=== PATIENT | female | born 1990 | race Asian ===

== ENCOUNTER 2016-11-01 13:37 | Emergency (ER) | payer OTHER ==
[~2016-11-01] VITALS: Ht 154.9 cm; Wt 67.1 kg
[2016-11-01] MEDS ORDERED: PRENTAB55 PO (13:49)
--- NOTE | 2016-11-01 15:47 | REP ---
Obstetric sonography: History: Abdominal cramping. Findings: Limited obstetric sonography demonstrates a viable single intrauterine gestation in a cephalic lie. heart rate is recorded at 168 beats per minute. A fundal left-sided placenta is seen without evidence of previa. Amniotic fluid is subjectively normal. EMMA is normal at 9.6 cm. The umbilical cord is seen surrounding the neck at this juncture. Closed cervical length viewed transabdominally is 4.1 cm. Signed by Kris Uriarte MD 11/01/2016 05:02 P
[2016-11-01 15:51] VITALS: BP 126/62
--- NOTE | 2016-11-03 21:38 | ED PDOC ---
Post-Departure Follow-Up ft jayson ob faxed formal report of ob us for fu Teja Bowles MD Nov 03, 2016 21:38
== END 2016-11-01 15:52 | disposition home or self-care (01) ==
LOC: M ED 14:10
DX: O99.89 Other specified diseases and conditions complicating pregnancy, childbirth and the puerperium (principal); R10.2 Pelvic and perineal pain; N89.8 Other specified noninflammatory disorders of vagina; Z3A.25 25 weeks gestation of pregnancy; Z87.891 Personal history of nicotine dependence

== ENCOUNTER 2017-01-26 17:02 | Outpatient (CLI) | payer OTHER ==
[~2017-01-26] VITALS: Ht 154.9 cm; Wt 0.7 kg
[~2017-01-26 17:02] MED LIST: PRENTAB55 PO
[2017-01-26 17:25] VITALS: BP 113/75
[2017-01-26] MEDS ORDERED: ACET50TA PO (18:04)
--- NOTE | 2017-01-26 21:56 | HPE ---
DATE OF ADMISSION: 01/26/2017 This lady is a 26-year-old 1, para 0, LMP 05/09/2016, EDC 02/13/2017 at 37 and 3 weeks of gestation with a history of pelvic pressure with movement. Risk factors is she has thalassemia and she has abnormal Pap smear. LABORATORY DATA: O+, HIV negative, hepatitis negative, RPR negative, rubella immune. Varicella immune. Pap abnormal LSIL, cannot rule out HSIL. Urine negative. Gonorrhea and chlamydia negative. 1-hour glucose is 93. On examination she does not appear in acute distress. Symphysis fundus height is 37, vertex presenting. Category one strip. Uterus is nontender. Bowel sounds four quadrants. Cervix is closed, posterior high, not dilated. No loss of fluid or discharge. Blood pressure is 113/75, pulse 100, temperature is 98.4, respirations are 18. Urine is 1.005, pH 7, trace of protein. Category one strip. The rest of the examination is unremarkable. She is normocephalic, atraumatic. Neck full range of motion. Pupils equal and reactive to light. Chest is clear bilaterally to bases. No wheezes or rhonchi. Distal pulses symmetric. No evidence of DVT, PE or superficial phlebitis. Back: No CVA tenderness. As mentioned the uterus is nontender. Four quadrant bowel sounds and appropriate symphysis fundus height. No rashes, lesions or pruritus. No arthralgia, myalgia. No complaints of cough, wheezes, shortness of breath or dyspnea on exertion. No chest pain. Not bleeding. Neurologically complete. No incontinency urgency, or frequency, nausea, vomiting or diarrhea or constipation. No diabetic issues. Gynecologic history is that her Pap smear is abnormal. Surgical history unremarkable. Family history noncontributory. She does not smoke or drink or abuse drugs and she is . There is no domestic violence. In summary, we have a 37 week with basically positional change causing pelvic pressure and pain. Precautions were given and the patient was discharged after an hour of evaluation, not delivered, and has a followup appointment on Friday.
== END 2017-01-26 18:10 | disposition home or self-care (01) ==
LOC: M LDO 17:02
PROVIDERS: ATTEND Obstetrics & Gynecology
DX: O26.893 Other specified pregnancy related conditions, third trimester (principal); Z3A.37 37 weeks gestation of pregnancy; R10.9 Unspecified abdominal pain; N89.9 Noninflammatory disorder of vagina, unspecified; D56.9 Thalassemia, unspecified; R87.612 Low grade squamous intraepithelial lesion on cytologic smear of cervix (LGSIL); O99.013 Anemia complicating pregnancy, third trimester

== ENCOUNTER 2017-02-14 01:50 | Outpatient (CLI) | payer OTHER ==
[~2017-02-14] VITALS: Ht 154.9 cm; Wt 69.0 kg
[~2017-02-14 01:50] MED LIST changes: +ACET50TA PO
[2017-02-14 02:04] VITALS: BP 125/88
[2017-02-14 02:16] VITALS: BP 135/86
[2017-02-14] MEDS ORDERED: LR 1,000 ML IV ONE (02:45)
[2017-02-14] MEDS ORDERED: ACETAMINOPHEN 500 MG TAB PO ONE (02:45)
[2017-02-14 03:08] LABS: MEAN CORPUSCULAR HEMOGLOBIN 28.1 pg (27.0-33.0); MEAN CORPUSCULAR HGB CONC 33.7 g/dl (32.0-36.5); MEAN CORPUSCULAR VOLUME 83.4 fl (80.0-96.0); WHITE BLOOD COUNT 13.2 K/mm3 (4.0-10.0)
[2017-02-14 03:18] VITALS: BP 118/70
[2017-02-14 03:38] LABS: ALBUMIN 2.8 GM/DL (3.2-5.2); ALBUMIN/GLOBULIN RATIO 0.78 (1.00-1.93); ALKALINE PHOSPHATASE 214 U/L (45-117); ALT/SGPT 21 U/L (12-78); ANION GAP 10 MEQ/L (8-16); AST/SGOT 22 U/L (15-37); BILIRUBIN,TOTAL 0.3 MG/DL (0.2-1.0); BLOOD UREA NITROGEN 8 MG/DL (7-18); CALCIUM LEVEL 9.6 MG/DL (8.5-10.1); CARBON DIOXIDE LEVEL 22 MEQ/L (21-32); CHLORIDE LEVEL 106 MEQ/L (98-107); GLOMERULAR FILTRATION RATE > 60.0 (>60); GLUCOSE, FASTING 107 MG/DL (70-105); POTASSIUM SERUM 4.1 MEQ/L (3.5-5.1); SODIUM LEVEL 138 MEQ/L (136-145); TOTAL PROTEIN 6.4 GM/DL (6.4-8.2); URIC ACID 3.5 MG/DL (2.6-6.0)
--- NOTE | 2017-02-15 09:38 | HPE ---
DATE OF ADMISSION: 02/14/2017 This a 26-year-old, 1, para 0, with a history of a headache, neck pain and swollen lymph nodes in her neck. Her risk factors is she has a family history of thalassemia and she had ASCUS, rule out HSIL on her Pap smear. Her labs are O+, HIV negative, hepatitis negative, VDRL negative, rubella immune. Varicella immune. Pap as mentioned ASCUS, rule out HSIL. Urine was negative. Gonorrhea and chlamydia negative. 1-hour glucose 93. GBS negative. On examination, she does not appear in distress. Symphysis fundus height is 40, vertex presenting. Category one strip, no decelerations, 15 x 15 x 15 seconds. On examination of her neck, she does have lymphadenopathy bilateral symmetrical. Tender, not inflamed, not red or hot. On examination of her thyroid, it is midline, mobile, 30 grams. Trachea is midline. No difficulty in swallowing. On oral examination, she has no cavities. No issues with her tongue and no issues with her teeth. No evidence of cavities. The blood pressure is 118/70, respirations are 18, pulse 80 and temperature 98.4. Urine is 1.000, pH 8, negative, negative, negative. We evaluated her pre-E protocol. Her protein creatinine ratio was 0.38. Her white count was slightly elevated at 13.2, hemoglobin 12.9, hematocrit 38.7 and platelets 196. Electrolytes were normal. Uric acid was 3.5. The rest the examination was unremarkable. After hydration and Tylenol for her neck pain, she felt much better and was discharged undelivered. She has a follow-up induction on 02/21/2017 at 41 weeks of gestation. Precautions were given regarding premature rupture of membranes, labor, and bleeding. The patient was discharged with her papers to followup for induction of labor.
== END 2017-02-14 04:30 | disposition home or self-care (01) ==
LOC: M LDO 01:50
PROVIDERS: ATTEND Obstetrics & Gynecology
DX: O99.89 Other specified diseases and conditions complicating pregnancy, childbirth and the puerperium (principal); Z3A.40 40 weeks gestation of pregnancy; R51 Headache; R59.9 Enlarged lymph nodes, unspecified

== ENCOUNTER 2017-02-21 06:02 | Inpatient (IN) | payer OTHER ==
[~2017-02-21] VITALS: Ht 154.9 cm; Wt 69.0 kg
[2017-02-21 06:20] VITALS: BP 129/74
[2017-02-21 07:21] LABS: MEAN CORPUSCULAR HEMOGLOBIN 27.9 pg (27.0-33.0); MEAN CORPUSCULAR HGB CONC 33.3 g/dl (32.0-36.5); MEAN CORPUSCULAR VOLUME 83.7 fl (80.0-96.0); RED CELL DISTRIBUTION WIDTH 15.2 % (11.5-14.5); WHITE BLOOD COUNT 13.2 K/mm3 (4.0-10.0)
--- NOTE | 2017-02-21 15:00 | IPNPDOC ---
Text Note Date of Service The patient was seen on 02/21/17. NOTE SBAR from Dr Randolph a few hours ago. Floor now amenable to start her IOL, was too busy. Chart reviewed. NST reassuring, possible late decel 20 min ago but nothing prior ot since, Cat 1 throughout o/w. Cx 2/60/-3, membranes swept As long as no further lates 30 min from said possible decel, OK to start cytotec 50 mcg po q4 hrs per Dr Randolph's prior order Sessions VS,Rubia, I+O VS, Rubia I+O Laboratory Tests 02/21/17 07:04 Red Blood Count 4.83, Mean Corpuscular Volume 83.7, Mean Corpuscular Hemoglobin 27.9, Mean Corpuscular Hemoglobin Concent 33.3, Red Cell Distribution Width 15.2 H Vital Signs Date Time Temp Pulse Resp B/P (MAP) Pulse Ox O2 Delivery O2 Flow Rate FiO2 02/21/17 06:20 98.3 100 18 129/74 (92) SESSIONS,WES Mart MD Feb 21, 2017 15:00
[2017-02-21] MEDS: miSOPROStol 50 MCG 1/2 TAB (S0191) PO SCH ×2 (15:15→21:12)
[2017-02-22] VITALS (68 sets, daily range): BP systolic 84–144; BP diastolic 42–96
[2017-02-22] MEDS ORDERED: FENTANYL 2MCG/ML ROPIVACAINE 0.2% IN 0.9% NACL 200ML IVBAG As Ordered ONE (00:11)
[2017-02-22] MEDS ORDERED: EPIDURAL/PCA KEYS XX PRN (00:52)
[2017-02-22] MEDS ORDERED: diphenhydrAMINE INJ 50MG/ML VIAL (J1200) IV PRN (00:52)
[2017-02-22] MEDS ORDERED: LACTATED RINGER'S 1000 ML IV PRN (00:52)
[2017-02-22] MEDS ORDERED: ONDANSETRON 4MG/2ML VIAL (J2405) IV PRN (00:52)
[2017-02-22] MEDS ORDERED: ePHEDrine SULFATE 25 MG/5 ML(5MG/ML) SYRINGE IV PRN (00:52)
[2017-02-22] MEDS ORDERED: NALOXONE INJ 0.4 MG/1 ML VIAL (J2310) IV PRN (00:52)
[2017-02-22] MEDS ORDERED: EPIDURAL COMMENT XX SCH (00:52)
[2017-02-22] MEDS ORDERED: REFRIGERATOR IV KEYS XX PRN (00:52)
--- NOTE | 2017-02-22 02:11 | IPNPDOC ---
Text Note Date of Service The patient was seen on 02/22/17. NOTE late entry Prog note 2100 on 11AUG NST reassuring Cat1, reg ctx's Cx 70/-3, making slow latent labor change. Given a second dose cytotec. Recheck in ~4 hrs, sooner prn Sessions Prog note current Now more comfortable s/p epidural, a few random late decels post-epidural but BP 's OK, mod tae throughout and accels also present Cx /-2/mid, has been posterior up to this point Watch NST closely and recheck in 3-4 hrs, sooner prn. Sessions VS,Rubia, I+O VS, Rubia I+O Laboratory Tests 02/21/17 07:04 Red Blood Count 4.83, Mean Corpuscular Volume 83.7, Mean Corpuscular Hemoglobin 27.9, Mean Corpuscular Hemoglobin Concent 33.3, Red Cell Distribution Width 15.2 H Vital Signs Date Time Temp Pulse Resp B/P (MAP) Pulse Ox O2 Delivery O2 Flow Rate FiO2 02/21/17 06:20 98.3 100 18 129/74 (92) SESSIONS,WES Mart MD Feb 22, 2017 02:11
--- NOTE | 2017-02-22 06:44 | IPNPDOC ---
Text Note Date of Service The patient was seen on 02/22/17. NOTE Epidural working well. NST reassuring with random variable decels but no lates and mod tae throughout Cx /-1, cx now anterior, has been slowly moving from post, station change now noted as well Doing well. Plan on recheck in ~2 hrs, sooner prn. SBAR to Dr Oliveira at ~0830. Sessions VS,Rubia, I+O VSRubia I+O Laboratory Tests 02/21/17 07:04 Red Blood Count 4.83, Mean Corpuscular Volume 83.7, Mean Corpuscular Hemoglobin 27.9, Mean Corpuscular Hemoglobin Concent 33.3, Red Cell Distribution Width 15.2 H Vital Signs Date Time Temp Pulse Resp B/P (MAP) Pulse Ox O2 Delivery O2 Flow Rate FiO2 02/22/17 04:17 93 18 98/53 (68) 02/22/17 03:44 98.8 SESSIONS,WES Mart MD Feb 22, 2017 06:44
[2017-02-22] MEDS ORDERED: ACETAMINOPHEN 500 MG TAB PO ONE ×2 (12:30→17:30)
[2017-02-22] MEDS: FENTANYL/ROPIVACAINE/NACL BAG 200 ML EPIDURAL SCH ×2 (16:06→20:52)
[2017-02-22] MEDS ORDERED: OXYTOCIN DRIP 30 UNITS in APPROPRIATE DILUENT 1 EA IV SCH (16:30)
[2017-02-22] MEDS ORDERED: ceFAZolin 2 GM/D5W 50 ML IV BAG (J0690) As Ordered ONE (17:56)
[2017-02-22] MEDS ORDERED: AZITHROMYCIN INJ 500MG VIAL (J0456) As Ordered ONE (17:57)
[2017-02-22] MEDS ORDERED: LACTATED RINGER'S 1000 ML IV ONE (18:15)
[2017-02-22] MEDS ORDERED: BUPIVACAINE HCL 0.25% 10 ML VIAL SC ONE (18:15)
[2017-02-22] MEDS ORDERED: AZITHROMYCIN INJ 500 MG, VIAL MATE ADAPTER 1 EACH in D5W 250 ML IV ONE (18:15)
[2017-02-22] MEDS ORDERED: BICITRA 30ML SOLN UDC PO ONE (18:15)
[2017-02-22] MEDS ORDERED: OXYTOCIN INJ 10 UNITS/ML VIAL (J2590) As Ordered ONE (18:28)
[2017-02-22] MEDS ORDERED: LIDOCAINE 2% W/EPIN INJ 20ML **PRES FREE As Ordered ONE (18:28)
[2017-02-22] MEDS ORDERED: ONDANSETRON 4MG/2ML VIAL (J2405) As Ordered ONE (19:03)
[2017-02-22] MEDS ORDERED: KETAMINE HCL 200 MG/20 ML VIAL As Ordered ONE (19:04)
[2017-02-22] MEDS ORDERED: KETOROLAC 60 MG/2 ML VIAL (J1885) As Ordered ONE (19:19)
[2017-02-22] MEDS ORDERED: MORPHINE PRES-FREE INJ 10 MG/10 ML VIAL (J2274) As Ordered ONE (19:23)
[2017-02-22 19:37] LABS: CORD GAS ABE V -4.1; CORD GAS HCO3 V 21.9 MEQ/L; CORD GAS O2 SAT V 67.1 %; CORD GAS PCO2 V 43.3 mmHg; CORD GAS PH V 7.322 UNITS; CORD GAS PO2 V 29.7 mmHg; CORD GAS SBC V 20.4 MEQ/L; CORD GAS TCO2 V 23.2 MEQ/L
[2017-02-22 19:39] LABS: CORD GAS ABE A -5.9; CORD GAS O2 SAT A 46.8 %; CORD GAS PCO2 A 59.1 mmHg; CORD GAS PH A 7.208 UNITS; CORD GAS PO2 A 23.9 mmHg; CORD GAS SBC A 18.5 MEQ/L; CORD GAS TCO2 A 24.8 MEQ/L
[2017-02-22] MEDS ORDERED: DOCUSATE SODIUM 100 MG CAP PO PRN (20:00)
[2017-02-22] MEDS ORDERED: METHYLERGONOVINE MALEATE 0.2 MG TAB PO PRN (20:00)
[2017-02-22] MEDS ORDERED: ANUSOL HC CREAM 30GM TOP PRN (20:00)
[2017-02-22] MEDS ORDERED: MEASLES,MUMPS,RUBELLA VACCINE INJ (MMR-II) (90707) SC SCH (20:00)
[2017-02-22] MEDS ORDERED: MOM 30ML SUSPENSION UDC PO PRN (20:00)
[2017-02-22] MEDS ORDERED: RHOGAM 300 MCG (1500 IU) INJ (J2790) IM SCH (20:00)
[2017-02-22] MEDS: OXYTOCIN DRIP 30 UNITS in APPROPRIATE DILUENT 1 EA IV SCH ×3 (20:00→23:27)
[2017-02-22] MEDS: PERCOCET 5MG/325MG TAB PO PRN (21:51)
[2017-02-22] MEDS: PIPERACILLIN/TAZOBACTAM SOD 3.375 GM in D5W MINI-BAG PLUS 50 ML IV SCH (23:18)
[2017-02-22] MEDS: ONDANSETRON 4MG/2ML VIAL (J2405) IV PRN (23:18)
[2017-02-23] MEDS: miSOPROStol 50 MCG 1/2 TAB (S0191) PO SCH (01:31)
[2017-02-23 02:00] VITALS: BP 114/56
[2017-02-23 06:05] VITALS: BP 129/82
[2017-02-23 06:43] LABS: MEAN CORPUSCULAR HEMOGLOBIN 27.9 pg (27.0-33.0); MEAN CORPUSCULAR HGB CONC 32.9 g/dl (32.0-36.5); MEAN CORPUSCULAR VOLUME 84.8 fl (80.0-96.0); RED CELL DISTRIBUTION WIDTH 15.2 % (11.5-14.5); WHITE BLOOD COUNT 23.6 K/mm3 (4.0-10.0)
[2017-02-23] MEDS: PIPERACILLIN/TAZOBACTAM SOD 3.375 GM in D5W MINI-BAG PLUS 50 ML IV SCH ×2 (06:54→15:02)
[2017-02-23] MEDS: ONDANSETRON 4MG/2ML VIAL (J2405) IV PRN (06:54)
[2017-02-23] MEDS: IBUPROFEN 800 MG TAB PO SCH ×3 (06:54→21:28)
[2017-02-23] MEDS: PERCOCET 5MG/325MG TAB PO PRN ×2 (06:57→16:57)
[2017-02-23] MEDS: OXYTOCIN DRIP 30 UNITS in APPROPRIATE DILUENT 1 EA IV SCH ×2 (08:00→12:00)
[2017-02-23 10:00] VITALS: BP 126/58
[2017-02-23] MEDS: PRENATAL VITAMINS CHEWABLE TABLET PO SCH (11:42)
[2017-02-23 14:00] VITALS: BP 120/78
--- NOTE | 2017-02-23 16:34 | IPN ---
DATE: 02/23/2017 This lady is a 26-year-old 1, now para 1, who was admitted for induction of labor at 41 and one weeks' of gestation, developed chorioamnionitis, tachycardia, maternal fever, meconium-stained liqua, remote from delivery, had a primary section. She delivered a live male , 7 pounds, 3 ounces, 3252 grams, scores of 8 and 9 at one and five minutes respectively. Arterial pH was 7.20, base excess -5.9, venous pH 7.32, base excess -4.1. Admitting hemoglobin was 13.4, hematocrit 40.4, and platelets were 200. day one hemoglobin 12.9, hematocrit 39.1, and platelets are 198. Her vital signs this morning: Her blood pressure is 129/82, respirations are 20, pulse 95, temperature is 97.4. She had elevated temperatures. The last one elevation was 101.4 at 1649 and if she is afebrile today, 02/23/2017 at 1649, we will discontinue her antibiotic therapy. The rest of the examination is unremarkable. She is attempting to breastfeed. She is normocephalic, atraumatic. Neck: Full range of motion. Pupils are equal and reactive to light. Distal pulses are symmetric. No evidence of deep vein thrombosis (DVT), pulmonary embolism (PE) or superficial phlebitis. Chest is clear bilaterally to the bases. No wheezes or rhonchi. Abdomen: Soft. Uterus 2 below. Lochia is moderate. Incision is clean and dry. Four quadrant bowel sounds are noted. She has no rash, lesions or pruritus. No arthralgia or myalgia. No complaints of cough, wheezes, shortness of breath or dyspnea on exertion. No chest pain. She is not bleeding. Neurologically complete. Lee catheter is out. There is no evidence of incontinence, urgency or frequency. No nausea, vomiting, diarrhea or constipation. She does have the occasional attempt at vomiting but this is being controlled with Zofran. She has no diabetic issues. PAST GYNECOLOGIC HISTORY: Noncontributory. PAST MEDICAL HISTORY: Noncontributory. PAST SURGICAL HISTORY: Noncontributory FAMILY HISTORY: Noncontributory. SOCIAL HISTORY: She does not smoke, drink or abuse drugs. 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 SUMMARY: Primary section for chorioamnionitis, maternal fever, tachycardia. PLAN: Discontinuing the antibiotics in 24 hours and plan discharge in 48 hours.
[2017-02-23 17:25] VITALS: BP 125/83
[2017-02-24] MEDS: PERCOCET 5MG/325MG TAB PO PRN ×4 (02:01→22:43)
[2017-02-24] MEDS: IBUPROFEN 800 MG TAB PO SCH ×3 (05:50→22:43)
[2017-02-24 06:00] VITALS: BP 118/80
--- NOTE | 2017-02-24 06:06 | RO ---
DATE OF PROCEDURE: 02/22/2017 PREPROCEDURE DIAGNOSES: tachycardia, maternal fever, chorion remote from delivery. POSTPROCEDURE DIAGNOSES: tachycardia, maternal fever, chorion remote from delivery. POP and meconium stained Liqui. PROCEDURE: Primary section. SURGEON: Dr. James Oliveira. B[employer] M[employer] AND CARRIAGE OPERATOR: Dr. Demetra Jackson. ANESTHESIA: Spinal plus local anesthetic for intraperitoneal procedures. ESTIMATED BLOOD LOSS: 400 mL. This lady is 26-year-old 1 who was admitted for induction of labor late term. She had misoprostol. She had Pitocin. She had artificial rupture of membranes (AROM) done draining meconium Liqui. She subsequently developed a fever. With the fact that she had persistent tachycardia, maternal fever despite use of Tylenol, failure progress, POP position, remote from delivery, swollen anterior lip 5-6 cm for 4-5 hours with adequate contractions, category two strip, we elected to go ahead and do a primary section . After discussing risks and benefits of section with the patient and , hemorrhage, infection, perforation, , reoperation, remote possibility of blood transfusion, remote hysterectomy, remote laceration and the fact that the baby will spend some time in the NICU because of maternal chorioamnionitis, signed and witnessed the consent form, expressed understanding of all issues. We went ahead and did a primary section for tachycardia, maternal fever, chorion remote from delivery. After adequate time-out and appropriate antibiotic coverage with 2 grams of Ancef and 500 mg of azithromycin, a low Pfannenstiel incision was made through the abdominal layers securing hemostasis. Opening the peritoneal cavity reflecting the bladder well down anteriorly, a thin lower uterine segment, we discovered clear Liqui with POP position, delivered a live male weighing 3252 grams, 7 pounds 3 ounces, of 8 and 9 and one and five minutes respectively. Arterial pH 7.20, base excess -5.9, venous pH 7.32, base excess -4.1. The placenta was manually removed. Three-vessel cord, membranes and tissues intact. The uterus was swept clean. The uterus contracted well down on Pitocin. The lower segment was oversewn in two layers and reperitonealization was performed. Before closing the uterus, intrauterine cultures performed. Aerobic and anaerobic sent off to microbiology. With instrument and pad count correct, the lower segment looking clean and dry, the abdomen was closed with running stitch for the peritoneum, same for the fascia, interrupted subcutaneous. Marcaine 0.25% to the skin and skin tapes and the patient and father were sent to the recovery room. Baby is in the NICU under services of Dr. Wylie.
[2017-02-24] MEDS: PRENATAL VITAMINS CHEWABLE TABLET PO SCH (08:27)
--- NOTE | 2017-02-24 09:39 | IPN ---
DATE: 02/24/2017 This lady is a 26-year-old, 1, now para 1, was admitted at 41 and 1 weeks for induction of labor. She had a primary section because of chorioamnionitis, tachycardia, maternal fever. Delivered a live male , 7 pounds 3 ounces (3252 grams). of 8 and 9 at one and five respectively. Arterial pH 7.20, base excess -5.9, venous pH 7.32, base excess -4.1. Her admitting hemoglobin was 13.4, hematocrit 40.4, platelets are 200. Discharged day #1 hemoglobin 12.9, hematocrit 39.1, platelets 198. Vital signs today, blood pressure is not recorded, respiration rates are 14, temperature is not recorded. Patient was on antibiotics for 24 hours, did not have a fever after delivery. 24 hours the antibiotics were discontinued. We discussed phlebitis, cystitis, mastitis, endometritis and cellulitis, diet, exercise, pain management, perineal, breast and wound care. Patient is presently in the intensive care unit (NICU) breast-feeding with her baby. She is not sure what she wants for control. Medications will be dispensed at discharge. Followup in 2 weeks for incision check, 6 weeks for check. Plan of care is to discharge her tomorrow.
[2017-02-24 18:04] VITALS: BP 135/80
[2017-02-25 05:33] VITALS: BP 116/76
[2017-02-25] MEDS: PERCOCET 5MG/325MG TAB PO PRN (06:24)
[2017-02-25] MEDS: IBUPROFEN 800 MG TAB PO SCH (06:25)
[2017-02-25] MEDS: PRENATAL VITAMINS CHEWABLE TABLET PO SCH (08:35)
[2017-02-25] MEDS ORDERED: ADVI200T PO (10:22)
[2017-02-25] MEDS ORDERED: MILKSUS PO (10:22)
[2017-02-25] MEDS ORDERED: OXYC1TAB23 PO (10:22)
[2017-02-25] MEDS ORDERED: COLA100C5 PO (10:22)
--- NOTE | 2017-02-26 14:45 | DSES ---
DATE OF ADMISSION: 02/21/2017 DATE OF DISCHARGE: 02/25/2017 This lady is a 26-year-old, 1 now para 1, had a primary section for post-age gestation, chorioamnionitis, remote from delivery, and tachycardia. Delivered a livebirth male infant, 7 pounds 3 ounces, 3258 grams. scores of 8 and 9 at 1 and 5 minutes, respectively. Arterial pH 7.20, base excess -5.9. Venous pH 7.32, base excess -4.1. Her admitting hemoglobin was 13.4, hematocrit 40.4, platelets 200. Her discharge hemoglobin 12.9, hematocrit 39.1, and platelets were 198. Her white count was 23,000.6, and she was given prophylactic antibiotics until she was 24 hours post-elevated temperature. Her vital signs on discharge today, blood pressure 116/76, respirations 18, pulse 84, temperature is 97.6. We discussed phlebitis, cystitis, mastitis, endometritis, cellulitis, diet, exercise, pain management, perineal, breast, and wound care. Presently, the baby is in the intensive care unit (NICU), and the patient will be made a boarder until the baby is allowed to go home. She has no plans regarding control. Medications were given at discharge. Breast examination unremarkable. She is normocephalic, atraumatic. Neck: Full range of motion. Pupils equal and reactive to light. Chest is clear bilaterally to bases. No wheezes or rhonchi. No deep venous thrombosis (DVT), pulmonary embolism (PE), or superficial phlebitis. Abdomen: Soft. Uterus 2 below. Lochia is moderate. Incision is clean and dry. Four-quadrant bowel sounds are noted. There are no rashes, lesions, or pruritus. No arthralgia or myalgia. No complaints of cough, wheezes, shortness of breath, or dyspnea on exertion. No urgency, frequency, or incontinence. No nausea, vomiting, diarrhea, or constipation. No diabetic issues. No family, medical, or surgical history. She does not smoke, drink. She does not abuse drugs. She is . There is no domestic violence. In summary, we have a term gestation delivered by primary section. Plan for discharge. Followup 2 weeks incision check, 6 weeks check.
== END 2017-02-25 11:30 | disposition home or self-care (01) | DRG 765 ==
LOC: M LDI 06:02 → M OBS 02-22 21:10
PROVIDERS: ADMIT Student in an Organized Health Care Education/Training Program; ATTEND Student in an Organized Health Care Education/Training Program
PROC: 3E033VJ Introduction of Other Hormone into Peripheral Vein, Percutaneous Approach (ICD-10-PCS; 2017-02-21)
PROC: 3E0DXGC Introduction of Other Therapeutic Substance into Mouth and Pharynx, External Approach (ICD-10-PCS; 2017-02-21)
PROC: 10D00Z1 Extraction of Products of Conception, Low, Open Approach (ICD-10-PCS; principal; 2017-02-22 19:04)
DX: O48.0 Post-term pregnancy (principal); O41.1230 Chorioamnionitis, third trimester, not applicable or unspecified; Z37.0 Single live birth; O64.0XX0 Obstructed labor due to incomplete rotation of fetal head, not applicable or unspecified; O77.0 Labor and delivery complicated by meconium in amniotic fluid; Z3A.41 41 weeks gestation of pregnancy; O76 Abnormality in fetal heart rate and rhythm complicating labor and delivery

== ENCOUNTER 2017-08-25 06:15 | Emergency (ER) | payer OTHER ==
[2017-08-25 07:23] LABS: CONTROL LINE HCG INT CTR LINE PRESENT; HCG, SERUM QUALITATIVE NEGATIVE (NEGATIVE)
[2017-08-25 07:24] LABS: BASO # 0.1 10^3/uL (0.0-0.2); BASO % 0.3 % (0.0-1.0); EOS % 0.2 % (0.0-3.0); IMMATURE GRANULOCYTE % 0.4 % (0-3.0); LYMPH # 3.3 10^3/uL (1.5-6.5); LYMPH % 17.1 % (24.0-44.0); MEAN CORPUSCULAR HEMOGLOBIN 27.4 pg (27.0-33.0); MEAN CORPUSCULAR HGB CONC 34.1 g/dl (32.0-36.5); MEAN CORPUSCULAR VOLUME 80.3 fl (80.0-96.0); MONO # 0.6 10^3/uL (0.0-0.8); MONO % 2.9 % (0.0-5.0); NEUTROPHILS # 15.2 10^3/uL (1.8-7.7); NEUTROPHILS % 79.1 % (36.0-66.0); PLATELET COUNT, AUTOMATED 252 10^3/uL (150-450); RED BLOOD COUNT 5.48 10^6/uL (4.00-5.40); RED CELL DISTRIBUTION WIDTH 12.3 % (11.5-14.5); WHITE BLOOD COUNT 19.1 10^3/uL (4.0-10.0)
[2017-08-25 07:33] LABS: ALBUMIN 4.3 GM/DL (3.2-5.2); ALKALINE PHOSPHATASE 140 U/L (45-117); ALT/SGPT 25 U/L (12-78); AMYLASE 47 U/L (25-115); ANION GAP 9 MEQ/L (8-16); AST/SGOT 14 U/L (7-37); BILIRUBIN,DIRECT 0.1 MG/DL (0.0-0.2); BILIRUBIN,TOTAL 0.7 MG/DL (0.2-1.0); BLOOD UREA NITROGEN 9 MG/DL (7-18); CALCIUM LEVEL 9.8 MG/DL (8.5-10.1); CARBON DIOXIDE LEVEL 23 MEQ/L (21-32); CHLORIDE LEVEL 106 MEQ/L (98-107); CREATININE FOR GFR 0.67 MG/DL (0.55-1.30); GLOMERULAR FILTRATION RATE > 60.0 (>60); GLUCOSE, FASTING 123 MG/DL (70-100); LIPASE 94 U/L (73-393); POTASSIUM SERUM 3.7 MEQ/L (3.5-5.1); SODIUM LEVEL 138 MEQ/L (136-145); TOTAL PROTEIN 8.2 GM/DL (6.4-8.2)
[2017-08-25 07:46] LABS: KETONE, URINE AUTO RFX NEGATIVE (NEGATIVE); LEUKOCYTE ESTERASE UR AUTO RFX NEGATIVE (NEGATIVE); MUCUS, URINE RFX SMALL (NEGATIVE); NITRITE, URINE AUTO RFX NEGATIVE (NEGATIVE); RBC, URINE AUTO RFX 2 /HPF (0-3); SPECIFIC GRAVITY UR AUTO RFX 1.018 (1.002-1.035); SQUAM EPITHELIAL CELL UR AURFX 2 /HPF (0-6); WBC, URINE AUTO RFX 5 /HPF (0-3)
[2017-08-25] MEDS: ONDANSETRON 4MG/2ML VIAL (J2405) IV (08:21)
[2017-08-25] MEDS: MORPHINE 2 MG/ML 1ML SYRINGE (J2270) IV (08:21)
[2017-08-25] MEDS: PANTOPRAZOLE 40MG INJ (PROTONIX) (C9113) IV (08:53)
[2017-08-25] MEDS: GI COCKTAIL 50ML BTL(HYOSCYAMINE/MAALOX/LIDOCAINE VISCOUS)(1:3:1) PO (09:20)
== END 2017-08-25 10:15 | disposition home or self-care (01) ==
LOC: M ED 06:15
DX: K29.70 Gastritis, unspecified, without bleeding (principal); Z79.899 Other long term (current) drug therapy
CPT/HCPCS: C9113

== ENCOUNTER 2017-08-25 22:59 | Inpatient (IN) | payer OTHER ==
[2017-08-26 00:40] LABS: BASO % 0.2 % (0.0-1.0); HEMATOCRIT 44.2 % (36.0-47.0); HEMOGLOBIN 14.8 g/dl (12.0-16.0); IMMATURE GRANULOCYTE % 0.5 % (0-3.0); LYMPH # 3.2 10^3/uL (1.5-6.5); LYMPH % 12.9 % (24.0-44.0); MEAN CORPUSCULAR HGB CONC 33.5 g/dl (32.0-36.5); MEAN CORPUSCULAR VOLUME 80.7 fl (80.0-96.0); MONO % 4.2 % (0.0-5.0); NEUTROPHILS # 20.4 10^3/uL (1.8-7.7); NEUTROPHILS % 82.2 % (36.0-66.0); PLATELET COUNT, AUTOMATED 255 10^3/uL (150-450); RED BLOOD COUNT 5.48 10^6/uL (4.00-5.40); RED CELL DISTRIBUTION WIDTH 12.5 % (11.5-14.5); WHITE BLOOD COUNT 24.8 10^3/uL (4.0-10.0)
[2017-08-26 00:58] LABS: INR 0.98; PROTHROMBIN TIME 13.1 SECONDS (12.4-14.5)
[2017-08-26] MEDS: NS 1,000 ML IV (01:00)
[2017-08-26 01:07] LABS: CONTROL LINE HCG INT CTR LINE PRESENT; HCG, SERUM QUALITATIVE NEGATIVE (NEGATIVE)
[2017-08-26] MEDS ORDERED: ISOVUE-370 76% 100ML VIAL (Q9967) As Ordered (01:14)
[2017-08-26 01:15] LABS: ALBUMIN 4.2 GM/DL (3.2-5.2); ALBUMIN/GLOBULIN RATIO 0.98 (1.00-1.93); ALKALINE PHOSPHATASE 139 U/L (45-117); ALT/SGPT 22 U/L (12-78); ANION GAP 8 MEQ/L (8-16); AST/SGOT 14 U/L (7-37); BILIRUBIN,DIRECT 0.2 MG/DL (0.0-0.2); BLOOD UREA NITROGEN 7 MG/DL (7-18); CALCIUM LEVEL 9.3 MG/DL (8.5-10.1); CARBON DIOXIDE LEVEL 27 MEQ/L (21-32); CHLORIDE LEVEL 101 MEQ/L (98-107); CREATININE FOR GFR 0.63 MG/DL (0.55-1.30); GLOMERULAR FILTRATION RATE > 60.0 (>60); GLUCOSE, FASTING 113 MG/DL (70-100); LIPASE 91 U/L (73-393); POTASSIUM SERUM 3.2 MEQ/L (3.5-5.1); SODIUM LEVEL 136 MEQ/L (136-145); TOTAL PROTEIN 8.5 GM/DL (6.4-8.2)
[2017-08-26] MEDS: ONDANSETRON 4MG/2ML VIAL (J2405) IV (01:52)
[2017-08-26] MEDS: MORPHINE 2 MG/ML 1ML SYRINGE (J2270) IV (01:52)
[2017-08-26] MEDS: PIPERACILLIN/TAZOBACTAM SOD 3.375 GM in APPROPRIATE DILUENT 1 EA IV ×4 (02:30→20:38)
[2017-08-26] MEDS: LR 1,000 ML IV ×3 (03:15→15:51)
[2017-08-26] MEDS ORDERED: dexameTHASONE 4 MG/ML 1ML VIAL (J1100) As Ordered (04:18)
[2017-08-26] MEDS ORDERED: fentaNYL 250 MCG/5 ML INJECTION (J3010) As Ordered (04:18)
[2017-08-26] MEDS ORDERED: ROCURONIUM BROMIDE 50 MG/5 ML VIAL As Ordered (04:18)
[2017-08-26] MEDS ORDERED: PROPOFOL 200 MG/20 ML VIAL As Ordered (04:18)
[2017-08-26] MEDS ORDERED: LIDOCAINE 2% INJ 100 MG/5 ML SDV (FOR ANES.) As Ordered (04:18)
[2017-08-26] MEDS ORDERED: MIDAZOLAM INJ 2 MG/2 ML VIAL (J2250) As Ordered (04:18)
[2017-08-26] MEDS ORDERED: ONDANSETRON 4MG/2ML VIAL (J2405) As Ordered (04:32)
[2017-08-26] MEDS ORDERED: PHENYLephrine HCL 500 MCG/5 ML (100MCG/ML) SYRINGE (J2370) As Ordered (04:34)
[2017-08-26] MEDS ORDERED: NEOSTIGMINE 10 MG/10 ML VIAL (J2710) As Ordered (05:01)
[2017-08-26] MEDS ORDERED: GLYCOPYRROLATE INJ 0.2 MG/ML 2 ML VIAL As Ordered (05:01)
[2017-08-26] MEDS ORDERED: DESFLURANE 240 ML INHALANT As Ordered (05:27)
[2017-08-26] MEDS ORDERED: KETOROLAC 60 MG/2 ML VIAL (J1885) As Ordered (05:30)
[2017-08-26] MEDS: BUPIVACAINE HCL 0.25% 30 ML VIAL As Ordered (05:30)
[2017-08-26] MEDS ORDERED: ONDANSETRON 4MG/2ML VIAL (J2405) IV ×2 (06:30→06:45)
[2017-08-26] MEDS ORDERED: MEPERIDINE INJ 25 MG/ML VIAL (J2175) IV (06:30)
[2017-08-26] MEDS ORDERED: fentaNYL 100 MCG/2 ML INJECTION (J3010) IV (06:30)
[2017-08-26] MEDS ORDERED: PERCOCET 5MG/325MG TAB PO (06:30)
[2017-08-26] MEDS ORDERED: KETOROLAC 30 MG/ML VIAL (J1885) IV (06:30)
[2017-08-26] MEDS ORDERED: MORPHINE 4 MG/ML 1ML VIAL (J2270) IV (06:45)
[2017-08-26] MEDS ORDERED: ACETAMINOPHEN TAB 650MG DOSE (2X325MG) PO (06:45)
[2017-08-26] MEDS: NORCO, ANEXSIA 5/325MG TABLET (HYDROcodone/ACETAMINOPHEN) PO ×3 (09:05→20:49)
[2017-08-27] MEDS: KETOROLAC 30 MG/ML VIAL (J1885) IV ×2 (00:29→11:40)
[2017-08-27] MEDS: PIPERACILLIN/TAZOBACTAM SOD 3.375 GM in APPROPRIATE DILUENT 1 EA IV ×4 (04:00→20:25)
[2017-08-27] MEDS: NORCO, ANEXSIA 5/325MG TABLET (HYDROcodone/ACETAMINOPHEN) PO ×2 (04:06→17:37)
[2017-08-27 06:52] LABS: BASO % 0.2 % (0.0-1.0); EOS # 0.1 10^3/uL (0.0-0.50); EOS % 0.3 % (0.0-3.0); IMMATURE GRANULOCYTE % 0.5 % (0-3.0); LYMPH # 4.1 10^3/uL (1.5-6.5); LYMPH % 25.4 % (24.0-44.0); MEAN CORPUSCULAR HEMOGLOBIN 27.3 pg (27.0-33.0); MEAN CORPUSCULAR HGB CONC 32.9 g/dl (32.0-36.5); MONO # 0.8 10^3/uL (0.0-0.8); MONO % 4.6 % (0.0-5.0); NEUTROPHILS # 11.1 10^3/uL (1.8-7.7); PLATELET COUNT, AUTOMATED 189 10^3/uL (150-450); RED BLOOD COUNT 4.58 10^6/uL (4.00-5.40); RED CELL DISTRIBUTION WIDTH 12.8 % (11.5-14.5); WHITE BLOOD COUNT 16.2 10^3/uL (4.0-10.0)
[2017-08-27 06:56] LABS: HEMOGLOBIN 12.5 g/dl (12.0-16.0)
[2017-08-27 07:09] LABS: ANION GAP 6 MEQ/L (8-16); BLOOD UREA NITROGEN 5 MG/DL (7-18); CALCIUM LEVEL 8.8 MG/DL (8.5-10.1); CARBON DIOXIDE LEVEL 29 MEQ/L (21-32); CHLORIDE LEVEL 108 MEQ/L (98-107); CREATININE FOR GFR 0.63 MG/DL (0.55-1.30); GLOMERULAR FILTRATION RATE > 60.0 (>60); GLUCOSE, FASTING 100 MG/DL (70-100); POTASSIUM SERUM 3.4 MEQ/L (3.5-5.1); SODIUM LEVEL 143 MEQ/L (136-145)
[2017-08-27] MEDS: INFLUENZA QUADRIVALENT PF VACCINE 0.5ML SYRINGE (90686) IM (09:35)
[2017-08-28] MEDS: PIPERACILLIN/TAZOBACTAM SOD 3.375 GM in APPROPRIATE DILUENT 1 EA IV ×2 (03:07→09:24)
[2017-08-28] MEDS: NORCO, ANEXSIA 5/325MG TABLET (HYDROcodone/ACETAMINOPHEN) PO (03:16)
[2017-08-28 06:51] LABS: HEMATOCRIT 37.6 % (36.0-47.0); HEMOGLOBIN 12.4 g/dl (12.0-16.0); MEAN CORPUSCULAR HEMOGLOBIN 27.4 pg (27.0-33.0); PLATELET COUNT, AUTOMATED 198 10^3/uL (150-450); RED BLOOD COUNT 4.53 10^6/uL (4.00-5.40); RED CELL DISTRIBUTION WIDTH 12.7 % (11.5-14.5); WHITE BLOOD COUNT 14.2 10^3/uL (4.0-10.0)
[2017-08-28 06:55] LABS: POSITIVE DIFF POS FLAG
[2017-08-28 06:56] LABS: ADD MANUAL DIFFER YES; DIFF SLIDE NUMBER 75
[2017-08-28 07:17] LABS: ATYPICAL LYMPH 2 % (0-5); EOSINOPHILS 2 % (0-5); LYMPHOCYTES 24 % (16-52); MONOCYTES 5 % (0-8); NEUTROPHILS 67 % (35-75)
[2017-08-28 07:18] LABS: PLATELET ESTIMATE NORMAL (NORMAL)
[2017-08-28] MEDS: AUGMENTIN 875 MG TAB PO (15:19)
== END 2017-08-28 15:15 | disposition home or self-care (01) | DRG 340 ==
LOC: M ED 22:59 → M SDC 08-26 02:47 → M MS4PR 08-26 06:55
PROC: 0DTJ4ZZ Resection of Appendix, Percutaneous Endoscopic Approach (ICD-10-PCS; principal; 2017-08-26 03:10)
DX: K35.2 Acute appendicitis with generalized peritonitis (principal)